=== PATIENT | female | born 1955 | race Caucasian/White ===

== ENCOUNTER → 2017-11-01 | Outpatient (CLI) | payer OTHER ==
[~2017-11-01] VITALS: Ht 165.1 cm; Wt 75.3 kg
[~2017-11-01] MED LIST: ONE DAILY WOME1 EACH PO
== END | disposition home or self-care (01) ==
LOC: AMB 10-21 12:00 → OPR 10-21 13:30 → AMB 13:00
DX: Z12.11 Encounter for screening for malignant neoplasm of colon (principal); D12.0 Benign neoplasm of cecum; D12.2 Benign neoplasm of ascending colon; K64.8 Other hemorrhoids; L90.0 Lichen sclerosus et atrophicus; Z82.49 Family history of ischemic heart disease and other diseases of the circulatory system; Z83.3 Family history of diabetes mellitus; F17.200 Nicotine dependence, unspecified, uncomplicated
CPT/HCPCS: 88305; J2250